=== PATIENT | male | born 1990 | race Caucasian/White ===

== ENCOUNTER → 2019-11-15 | Outpatient (CLI) | payer BC ==
--- NOTE | 2019-11-15 09:03 | KCIC ---
MR of the right knee HISTORY: Patellar subluxation laterally. Dislocation 2 weeks ago. Medial knee pain. TECHNIQUE: Routine multiplanar sequences are obtained. FINDINGS: No evidence of medial meniscal tear. No evidence of lateral meniscal tear. Anterior and posterior cruciate ligaments are intact. Medial collateral ligament is intact. Iliotibial band unremarkable. Fibular collateral ligament, biceps femoris tendon and popliteus tendon are intact. Patellar tendon and quadriceps tendon are intact. Marrow contusion at the anterior medial femoral condyle, subchondral and subcortical. Subchondral and subcortical marrow contusion at the inferomedial patella. Findings are compatible with recent lateral patellar dislocation. Sprain or partial tearing of the medial retinaculum and patellofemoral ligament at their patellar aspect. Small partial-thickness fissure of the central patella. No acute chondral defect of the patellofemoral joint. Medial and lateral compartment articular cartilage is intact. Tibial tubercle-trochlear groove distance measures 15 mm. No gross patellar subluxation on the current exam. Question slight lateral patellar tilt. Small Santos's cyst. Small subcortical lesion at the posterior medial tibial metaphysis measuring 9 mm, likely benign such as a small fibrous cortical defect or cyst. IMPRESSION: 1. Reciprocating patellofemoral marrow contusions compatible with recent lateral dislocation. Sprain or partial tearing of the patellar attachments of the medial retinaculum and medial patellofemoral ligament. 2. TT-TG distance measures 15 mm. 3. Small superficial thin fissure of the central patellar cartilage. Electronically signed by: Girish Wright MD (11/15/2019 8:59 AM) [id number]
== END | disposition home or self-care (01) ==
LOC: KCIC MRI 07:53
PROVIDERS: ATTEND Physician Assistant
DX: S83.014A Lateral dislocation of right patella, initial encounter (principal); M71.21 Synovial cyst of popliteal space [Baker], right knee; M25.861 Other specified joint disorders, right knee; X58.XXXA Exposure to other specified factors, initial encounter; Y93.89 Activity, other specified; Y92.89 Other specified places as the place of occurrence of the external cause; Y99.8 Other external cause status
CPT/HCPCS: 73721